=== PATIENT | male | born 1970 | race Caucasian/White ===

== ENCOUNTER 2018-12-31 08:18 | Day surgery (SDC) | payer OTHER ==
[2018-12-29 18:21] VITALS: BMI 23.0
--- NOTE | 2018-12-31 10:16 | HP ---
History & Physical Update - History History: No Change - Physical Physical: No Change - Assessment Assessment: No Change - Plan Plan: No Change
[2018-12-31] MEDS ORDERED: MIDAZOLAM HCL 2 MG/2 ML SINGLE DOSE VIAL ONE (10:23)
[2018-12-31] MEDS ORDERED: ROPIVACAINE HCL 0.5% 30ML VIAL ONE (10:23)
[2018-12-31] MEDS ORDERED: oxyCODONE HCL 5 MG TABLET PO PRN ×3 (11:18→13:16)
[2018-12-31] MEDS ORDERED: ONDANSETRON 4 MG/2 ML VIAL IVPUSH PRN (11:18)
[2018-12-31] MEDS ORDERED: ONDANSETRON 4 MG/2 ML VIAL ONE (11:26)
[2018-12-31] MEDS ORDERED: BUPIVACAINE HCL/EPINEPHRINE/PF 30 ML VIAL IJ ONE (11:27)
[2018-12-31] MEDS ORDERED: LACTATED RINGERS SOLUTION 1,000 ML IV SCH (11:30)
[2018-12-31] MEDS ORDERED: BUPIVACAINE 0.25% /EPI 1:200,000 10 ML VIAL INF ONE (11:39)
[2018-12-31] MEDS ORDERED: EPINEPHrine 1:1,000 1 MG/1 ML - 30ML VIAL (INJECTION) ONE (11:43)
[2018-12-31] MEDS ORDERED: PROPOFOL 20 ML ONE ×2 (12:07→12:46)
[2018-12-31] MEDS ORDERED: oxyCODONE HCL 10 MG SUSTAINED ACTING TABLET PO ONE (13:16)
--- NOTE | 2018-12-31 13:19 | DS ---
Physical Examination Vital Signs: Vital Signs Temperature 97.6 F 12/31/18 08:57 Pulse Rate 66 12/31/18 08:57 Respiratory Rate 16 12/31/18 08:57 Blood Pressure 111/75 12/31/18 08:57 O2 Sat by Pulse Oximetry (%) 100 12/31/18 09:04 Discharge Summary Reason For Visit: AC JOINT ARTHROSIS BURSITIS RIGHT SHOULDER Condition: Good - Instructions Diet, Activity, Other Instructions: Post Operative Instructions: Shoulder Arthroscopy Dr Hugh Murray 1. Pain following a Shoulder Arthroscopy is variable and can be significant. Some patients will have more pain than others. You have been provided with a prescription for medication that contains a narcotic. You are not allowed to drive while on this medication. You should take Tylenol (Acetaminophen) when taking the pain medication. Feel free to take medications such as Ibuprofen or Naprosyn in addition to the pain medicine if you do not have any problems with the NSAID class of medications. 2. Apply ice to the shoulder for 15 minutes every hour. You may continue this for as many days as necessary. 3. You may find sleeping on an incline (reclining chair) to be more comfortable for the first few days. 4. You must remain in your sling at all times except when showering. The only exception to this is to allow you to stretch your elbow a few times a day to prevent your hand and forearm from swelling. 5. You are not to use your arm to reach for anything, lift anything or carry anything until instructed otherwise. 6. You may remove the bandages in 48 hours. You may shower at that point. 7. Place band-aids on the sutures after your shower.Do not put any creams or lotions on the incision until after the sutures are removed. 8. Please call the office to schedule a visit to have your sutures removed. 9. If for any reason you believe you may have an infection or are concerned, please feel free to call me. I can be reached through our office number 24 hours a day. 10. Please call our office with any questions; we will review the surgical findings during your post-operative visit. Disposition: HOME - Home Medications Comprehensive Discharge Medication List: Ambulatory Orders NK [No Known Home Medication] 12/29/18
--- NOTE | 2018-12-31 13:19 | OP ---
Operative Note - Note: Operative Date: 12/31/18 Pre-Operative Diagnosis: Right shoulder RCT, ACJ OA Operation: RSA< biceps debridement, RCR, distal clavicle resection Post-Operative Diagnosis: Other Surgeon: Hugh Murray Pool Lifeguard: Cande Negron Anesthesiologist/FINGERPRINT CLASSIFIER: Robert Gutierrez Anesthesia: General Operative Report Dictated: Yes
--- NOTE | 2018-12-31 16:03 | SURG ---
Surgery Odd Bundle Worker Note Odd Bundle Worker: Cande Negron PA-C Date of Service: 12/31/18 Diagnosis: Right shoulder RCT, ACJ OA Procedure: RSA< biceps debridement, RCR, distal clavicle resection I was present for the entirety of the operative procedure. For further detail, please refer to operative report. Visit type - Case Type Case Type: Scheduled - Emergency Emergency Visit: No - New patient This patient is new to me today: Yes Date on this admission: 12/31/18
[2018-12-31 16:55] VITALS: TEMP 98
[2018-12-31 17:03] VITALS: BP 116/72; PULSE 72
--- NOTE | 2019-01-05 14:02 | PATH ---
Surgical Pathology Report Patient Name: VINCE EL [facility]. Rec. #: [id number] /Age/Gender: 1970 (Age: 48) / M Account: [id number] Location: [facility] AMBULATORY Taken: 12/31/2018 Received: 12/31/2018 Reported: 01/05/2019 Physicians: Hugh Murray M.D. Specimen(s) Received SHAVINGS RIGHT SHOULDER Clinical History AC joint arthrosis, bursitis Final Diagnosis SHOULDER, RIGHT, ARTHROSCOPIC SHAVINGS: FIBROSYNOVIAL AND FIBROCOLLAGENOUS TISSUE. Electronically Signed Mary David M.D. Gross Description Received in formalin, labeled "shavings right shoulder" are multiple fragments of padgett and yellow soft tissue having an aggregate of 3.5 x 2.6 x 0.4 cm. Wine Manager tissue is submitted in one cassette. AE/01/03/2019 ebram/01/03/2019
== END 2018-12-31 15:30 | disposition home or self-care (01) ==
LOC: FASU 08:18
PROVIDERS: ATTEND Orthopaedic Surgery
PROC: 0MM14ZZ Reattachment of Right Shoulder Bursa and Ligament, Percutaneous Endoscopic Approach (ICD-10-PCS; 2018-12-31)
PROC: 0PB94ZZ Excision of Right Clavicle, Percutaneous Endoscopic Approach (ICD-10-PCS; 2018-12-31)
PROC: 0LQ14ZZ Repair Right Shoulder Tendon, Percutaneous Endoscopic Approach (ICD-10-PCS; principal; 2018-12-31 11:39)
PROC: 0RNJ4ZZ Release Right Shoulder Joint, Percutaneous Endoscopic Approach (ICD-10-PCS; 2018-12-31 11:39)
PROC: 0RBJ4ZZ Excision of Right Shoulder Joint, Percutaneous Endoscopic Approach (ICD-10-PCS; 2018-12-31 11:39)
DX: S46.211A Strain of muscle, fascia and tendon of other parts of biceps, right arm, initial encounter (principal); S43.431A Superior glenoid labrum lesion of right shoulder, initial encounter; M75.121 Complete rotator cuff tear or rupture of right shoulder, not specified as traumatic; X58.XXXA Exposure to other specified factors, initial encounter; Y93.9 Activity, unspecified; Y92.9 Unspecified place or not applicable
CPT/HCPCS: 88304-TC; 94760